=== PATIENT | male | born 1965 | race Caucasian/White ===

== ENCOUNTER 2023-07-29 14:34 | Observation (INO) | payer BC ==
[~2023-07-29] VITALS: Ht 180.3 cm; Wt 107.0 kg
[2023-07-29 14:51] VITALS: BP_SYST 150; PULSE 89; RESP 16; TEMP 97.2; O2SAT 94
[2023-07-29 15:19] LABS: BASOPHILS % (AUTO) 0.6 % (0.0-2.0); EOSINOPHILS # (AUTO) 0.1 K/uL (0.0-0.4); EOSINOPHILS % (AUTO) 1.9 % (0.0-4.0); HEMATOCRIT 43.4 % (36-54); HEMOGLOBIN 15.3 g/dL (14.0-18.0); LYMPHOCYTES # (AUTO) 2.8 K/uL (1.0-5.5); LYMPHOCYTES % (AUTO) 39.9 % (20.5-51.5); MEAN CORPUSCULAR HEMOGLOBIN 31 pg (27-31); MEAN CORPUSCULAR HGB CONC 35 % (32-36); MEAN CORPUSCULAR VOLUME 87 fL (79.0-98.0); MONOCYTES # (AUTO) 0.3 K/uL (0.0-1.0); NEUTROPHILS # (AUTO) 3.7 K/uL (1.8-7.7); NEUTROPHILS % (AUTO) 52.6 % (40.0-70.0); PLATELET COUNT (AUTO) 200 K/uL (130-430); RED BLOOD CELL COUNT(AUTO) 4.99 MIL/uL (4.2-6.2); RED CELL DISTRIBUTION WIDTH 13.7 % (9.0-15.0); WHITE BLOOD COUNT (AUTO) 6.9 K/uL (4.8-10.8)
[2023-07-29 15:24] LABS: PROTHROMBIN TIME 10.2 SECS (9.5-12.5)
[2023-07-29 15:31] LABS: BILIRUBIN,URINE NEGATIVE (NEGATIVE); BLOOD, URINE NEGATIVE (NEGATIVE); CLARITY/URINE CLEAR (CLEAR); COLOR,URINE YELLOW (YELLOW); GLUCOSE,URINE NEGATIVE (NEGATIVE); KETONES,URINE NEGATIVE (NEGATIVE); LEUKOCYTE ESTERASE ,URINE NEGATIVE (NEGATIVE); NITRITE, URINE NEGATIVE (NEGATIVE); PROTEIN URINE NEGATIVE (NEGATIVE); UROBILINOGEN,URINE 0.2 (0.2-1.0)
[2023-07-29 15:48] LABS: ALANINE AMINOTRANSFERASE 57 U/L (12-78); ALBUMIN 3.9 g/dL (3.4-4.8); ANION GAP 11 (5-15); ASPARTATE AMINOTRANSFERASE 27 U/L (10-37); BILIRUBIN,DIRECT 0.1 mg/dL (0.0-0.3); CALCIUM 8.7 mg/dL (8.4-11.0); CARBON DIOXIDE 26 mmol/L (23-29); CHLORIDE 106 mmol/L (98-107); CREATININE 0.87 mg/dL (0.55-1.30); GFR AFRICAN AMERICAN 116 mL/min (>90); GLUCOSE 108 mg/dL (74-106); POTASSIUM 3.9 mmol/L (3.5-5.1); SODIUM SERUM 143 mmol/L (136-145); TOTAL BILIRUBIN 0.3 mg/dL (0.0-1.0); TOTAL PROTEIN, SERUM 7.9 g/dL (6.4-8.3); UREA NITROGEN, BLOOD 16 mg/dL (8-21)
[2023-07-29 15:49] LABS: GFR NON AFRICAN-AMERICAN 96 mL/min (>90)
[2023-07-29] MEDS ORDERED: ceFAZolin SODIUM 2 GM in D5W 100 ML IV ONE (18:45)
[2023-07-29] MEDS: LR 1,000 ML IV ONE (19:06)
[2023-07-29] MEDS ORDERED: HYDROmorphone 2 MG/ML VIAL ONE (19:30)
[2023-07-29] MEDS ORDERED: ceFAZolin SODIUM 1 GM VIAL ONE (20:12)
[2023-07-29] MEDS ORDERED: DEXAMETHASONE SOD PHOSPHATE 4 MG/ML VIAL ONE (20:15)
[2023-07-29] MEDS ORDERED: HYDROmorphone 1 MG/ML INJ. CARTRIDGE IVP PRN (21:15)
[2023-07-29] MEDS ORDERED: NALOXONE HCL 0.4 MG/ML AMP (NARCAN) IVP PRN ×2 (21:15→22:15)
[2023-07-29] MEDS ORDERED: MORPHINE 4 MG INJ. 4 MG/ML VIAL IVP PRN ×2 (21:15)
[2023-07-29] MEDS ORDERED: ONDANSETRON HCL 4 MG/2 ML VIAL IVP PRN (21:15)
[2023-07-29] MEDS ORDERED: MORPHINE 2 MG/ML INJ. SYRINGE IVP PRN (22:15)
[2023-07-29 23:24] VITALS: BP_SYST 160; PULSE 82; RESP 16; TEMP 97.9; O2SAT 93
[2023-07-29 23:30] VITALS: BP_SYST 150; PULSE 75; RESP 16; TEMP 98; O2SAT 95
[2023-07-29 23:45] VITALS: BP_SYST 163; PULSE 67; RESP 16; TEMP 97.9; O2SAT 94
[2023-07-30] VITALS (11 sets, daily range): BP systolic 107–152; PULSE 75–92; RESP 16–18; TEMP 97.9–99.1; O2SAT 93–98
[2023-07-30] MEDS: CEFAZOLIN 1 GM IVPB PREMIX 50 ML IV ONE (01:42)
[2023-07-30] MEDS: ceFAZolin SODIUM 1 GM in D5W 50 ML IV SCH (06:37)
[2023-07-30] MEDS: DOCUSATE SODIUM 250 MG CAPSULE PO SCH (09:16)
[2023-07-30] MEDS: traMADol HCL HCL 50 MG TABLET (ULTRAM) PO PRN (14:46)
[2023-07-30] MEDS ORDERED: DOCU250C71 PO (19:00)
[2023-07-30] MEDS ORDERED: TRAM50TA2 PO (19:00)
== END 2023-07-30 20:00 | disposition home or self-care (01) ==
LOC: SED 14:34 → SMU 18:28
PROVIDERS: ADMIT Surgery; ATTEND Surgery
DX: K42.0 Umbilical hernia with obstruction, without gangrene (principal); K66.0 Peritoneal adhesions (postprocedural) (postinfection); I10 Essential (primary) hypertension; Z79.899 Other long term (current) drug therapy
CPT/HCPCS: 80076; 80048; 81001; 83690; 85025; 85610; 85730; 86886; 86900; 86901; 84484; 36415; 93005; 71045; 93970; 99285; 81003; 88302; 49592; 96365; 96366; 94070; J0690 ×3; J1100; J3490; J1885; J2710; J2405; J2704; J0330; J1170; J7120; G0378 ×2; C1781; J7060